=== PATIENT | male | born 1945 | race Caucasian/White ===

== ENCOUNTER 2016-09-28 13:57 | Emergency (ER) | payer MEDICARE ==
[2016-09-28 14:04] VITALS: BP 195/111; PULSE 142; RESP 20; TEMP 98.1; O2SAT 97
[2016-09-28] MEDS ORDERED: PLAV75TA29 PO (14:12)
[2016-09-28] MEDS ORDERED: OMEG100010 (14:12)
[2016-09-28] MEDS ORDERED: FOLI400T PO (14:12)
[2016-09-28] MEDS ORDERED: ALLO300T2 PO (14:12)
[2016-09-28] MEDS ORDERED: VITA400C28 (14:12)
[2016-09-28] MEDS ORDERED: LOSA25TA PO (14:12)
[2016-09-28] MEDS ORDERED: METO50TA11 PO (14:12)
[2016-09-28] MEDS ORDERED: MULTTAB4 (14:12)
[2016-09-28] MEDS ORDERED: SIMV40TA PO (14:12)
[2016-09-28] MEDS ORDERED: COQ-30CA2 (14:12)
[2016-09-28] MEDS ORDERED: SPIR25TA PO (14:12)
[2016-09-28] MEDS ORDERED: ASPI81CH CHEW (14:12)
[2016-09-28] MEDS ORDERED: POTA-255 PO (14:12)
[2016-09-28] MEDS ORDERED: VITA500T49 PO (14:12)
[2016-09-28] MEDS ORDERED: STOO100T PO (14:12)
[2016-09-28] MEDS ORDERED: SODIUM CHLORIDE 0.9% FLUSH 10 ML FLUSH IVF PRN ×3 (14:15→14:45)
[2016-09-28] MEDS ORDERED: DILTIAZEM HCL 25 MG/5 ML VIAL IV PUSH ONE (14:15)
[2016-09-28 14:17] VITALS: BP_SYST 104; BP_SYST 195; BP_DIAS 111; BP_DIAS 58; PULSE 98; RESP 20; O2SAT 97; O2SAT 99
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
[2016-09-28 14:26] LABS: AUTOMATED NEUTROPHIL # 5.8 TH/MM3 (1.8-7.7); BASOPHIL # 0.1 TH/MM3 (0-0.2); BASOPHIL % 0.7 % (0.0-2.0); EOSINOPHIL # 0.1 TH/MM3 (0-0.4); EOSINOPHIL % 0.9 % (0.0-4.0); HEMATOCRIT 44.2 % (39.0-51.0); HEMO FLAGS DIFF FINAL; LYMPH % 12.8 % (9.0-44.0); LYMPHOCYTE # 0.9 TH/MM3 (1.0-4.8); MEAN CELL VOLUME 91.5 FL (80.0-100.0); MEAN CORPUSCULAR HEMOGLOBIN 31.3 PG (27.0-34.0); MEAN CORPUSCULAR HGB CONC 34.2 % (32.0-36.0); MONO % 6.9 % (0.0-8.0); NEUT % 78.7 % (16.0-70.0); PLATELET COUNT 264 TH/MM3 (150-450); RED BLOOD COUNT 4.82 MIL/MM3 (4.50-5.90); RED CELL DISTRIBUTION WIDTH 12.6 % (11.6-17.2); WHITE BLOOD COUNT 7.4 TH/MM3 (4.0-11.0)
[2016-09-28 14:30] VITALS: BP 120/74; PULSE 81; RESP 16; O2SAT 94
[2016-09-28 14:34] LABS: CHLORIDE 107 MEQ/L (98-107); POTASSIUM 3.8 MEQ/L (3.5-5.1); SODIUM (NA) 143 MEQ/L (136-145)
[2016-09-28 14:37] LABS: ANION GAP 11 MEQ/L (5-15); BICARBONATE 25.3 MEQ/L (21.0-32.0); BLOOD UREA NITROGEN 13 MG/DL (7-18); MAGNESIUM 2.1 MG/DL (1.5-2.5)
[2016-09-28 14:39] LABS: APTT (PATIENT) 26.2 SEC (24.3-30.1); PROTHROMBIN TIME - PATIENT 10.7 SEC (9.8-11.6)
--- NOTE | 2016-09-28 14:39 | RADRPT ---
EXAM DATE/TIME: 09/28/2016 14:27 [facility] COMPARISON: No previous studies available for comparison. INDICATIONS : Chest pain MEDICAL HISTORY : Hypercholesterolemia. Hypertension SURGICAL HISTORY : CABG. ENCOUNTER: Initial ACUITY: 1 day PAIN SCORE: 0/10 LOCATION: Bilateral chest FINDINGS: Postsurgical features of prior median sternotomy and cardiac surgery. Cardiac silhouette is enlarged. No significant focal pleural or parenchymal opacities are noted. Bony thorax is intact. CONCLUSION: 1. Postsurgical features. 2. Cardiomegaly. 3. No acute cardiopulmonary disease. Juan Quinones MD on September 28, 2016 at 14:36 Board Certified Radiologist. This report was verified electronically.
[2016-09-28 14:41] LABS: GLOMERULAR FILTRATION RATE 66 ML/MIN (>89)
[2016-09-28 14:44] LABS: CREATINE KINASE 136 U/L (39-308)
[2016-09-28] MEDS ORDERED: DILTIAZEM INJ 125 MG in SODIUM CHLORIDE 0.9% INJ 100 ML IV SCH (14:45)
[2016-09-28 14:56] LABS: CKMB 3.2 NG/ML (0.5-3.6)
[2016-09-28 15:27] VITALS: BP 123/73; PULSE 87; RESP 20; O2SAT 97
[2016-09-28] MEDS ORDERED: METOPROLOL TARTRATE 50 MG TAB PO ONE (15:30)
[2016-09-28] MEDS ORDERED: METO25TA3 PO (15:33)
--- NOTE | 2016-09-29 14:35 | EKG ---
Date Performed: 09/28/2016 Time Performed: 14:01:42 PTAGE: 71 years EKG: SUPRAVENTRICULAR TACHYCARDIA OF UNCERTAIN MECHANISM BUT IT IS MOST LIKEY A REENTRY TACHYCAR DICK INCOMPLETE RIGHT BUNDLE BRANCH BLOCK NONSPECIFIC ST-T WAVE CHANGES ABNORMAL ECG NO PREVIOUS TRACING DOCTOR: Tori Celeste Interpretating Date/Time 09/29/2016 14:34:17
== END 2016-09-28 16:59 | disposition home or self-care (01) ==
LOC: PHED 13:57
DX: I48.0 Paroxysmal atrial fibrillation (principal); I47.1 Supraventricular tachycardia; I25.10 Atherosclerotic heart disease of native coronary artery without angina pectoris; E78.00 Pure hypercholesterolemia, unspecified; F17.290 Nicotine dependence, other tobacco product, uncomplicated; Z79.02 Long term (current) use of antithrombotics/antiplatelets; Z79.82 Long term (current) use of aspirin; Z95.5 Presence of coronary angioplasty implant and graft; Z95.1 Presence of aortocoronary bypass graft
CPT/HCPCS: 71010; 80048; 82550; 82552; 83735; 84484; 85025; 85610; 85730; 93005; 96365; 96366; 96375